=== PATIENT | male | born 1955 | race African-American/Black ===

== ENCOUNTER 2017-04-23 09:25 | Day surgery (SDC) | payer OTHER ==
[2017-04-22 13:24] VITALS: BMI 23.5
--- NOTE | 2017-04-23 11:12 | HP ---
Admitting History and Physical - Admission History of Present Illness: The patient is a 61 yo male who presents today for repair of a left inguinal hernia. He has noted the hernia for 18 months and states that it moves in and out. Today he has no complaints of nausea, abd pain. No CP, SOB fevers. 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, Seizure Cardiovascular: No: Deep Vein Thrombosis, HTN Pulmonary: No: Asthma, Sleep Apnea Gastrointestinal: No: Gastritis, GERD Renal/: No: Renal Failure, Hematuria Musculoskeletal: Yes: Osteoarthritis, Other (bilateral shoulder injury with chronic pain) Endocrine: No: Diabetes Mellitus (r) - Past Surgical History Additional Past Surgical History: right biceps repair Left elbow fracture repair with hardware - Smoking History Smoking history: Current some day smoker Have you smoked in the past 12 months: Yes Aproximately how many cigarettes per day: 3 - Alcohol/Substance Use Hx Alcohol Use: Yes (RARELY) <Joanie Hart - Last Filed: 04/23/17 11:30> Home Medications <Joanie Hart - Last Filed: 04/23/17 11:30> <Bill Cedillo - Last Filed: 04/23/17 11:55> - Allergies Allergies/Adverse Reactions: Allergies Allergy/AdvReac Type Severity Reaction Status Date / Time No Known Drug Allergies Allergy Verified 04/23/17 10:01 - Home Medications Home Medications: Ambulatory Orders RX: No Home Medications 0 dose .ROUTE UTDICT 11/11/13 Docusate Sodium [Colace -] 100 mg PO TID #90 capsule 04/23/17 Oxycodone HCl/Acetaminophen [Percocet 5-325 mg Tablet] 1 - 2 tab PO Q4H #28 tablet MDD 4 04/23/17 Review of Systems - Review of Systems Constitutional: denies: Chills, Fever Neck: denies: Decreased ROM, Pain on Movement Cardiovascular: denies: Chest Pain, Palpitations Respiratory: denies: Cough, Snoring, SOB Gastrointestinal: denies: Abdominal Pain, Nausea Genitourinary: denies: Burning, Hematuria Musculoskeletal: reports: Decreased ROM (bilateral shoulders), Joint Pain ( bilateral shoulders). denies: Joint Swelling Neurological: denies: Headache, Seizure Endocrine: reports: Unexplained Weight Loss Hematology/Lymphatic: denies: Easily Bruised, Excessive Bleeding <Metzen,Joanie - Last Filed: 04/23/17 11:30> Physical Examination Vital Signs: Vital Signs Temperature 97.5 F L 04/23/17 09:57 Pulse Rate 78 04/23/17 09:57 Respiratory Rate 18 04/23/17 09:57 Blood Pressure 111/84 04/23/17 09:57 O2 Sat by Pulse Oximetry (%) 98 04/23/17 09:57 Constitutional: Yes: Well Nourished, Calm Eyes: Yes: WNL, Conjunctiva Clear. No: Sclera Icterus HENT: Yes: WNL, Atraumatic, Normocephalic Neck: Yes: WNL, Supple, Trachea Midline Cardiovascular: Yes: WNL, Regular Rate and Rhythm Respiratory: Yes: WNL, Regular, CTA Bilaterally Gastrointestinal: Yes: WNL, Normal Bowel Sounds, Soft, Hernia (reducible, non- tender to left inguinal area) Edema: No Peripheral Pulses WNL: Yes Peripheral Pulses: Left Doralis Pedis: 2+, Right Dorsalis Pedis: 2+ Wound/Incision: Yes: Clean/Dry, Well Approximated Neurological: Yes: WNL, Alert, Oriented ...Motor Strength: WNL, LUE, LLE, RUE, RLE Psychiatric: Yes: WNL, Alert, Oriented <Joanie Hart Last Filed: 04/23/17 11:30> Vital Signs: Vital Signs Temperature 97.5 F L 04/23/17 09:57 Pulse Rate 78 04/23/17 09:57 Respiratory Rate 18 04/23/17 09:57 Blood Pressure 111/84 04/23/17 09:57 O2 Sat by Pulse Oximetry (%) 98 04/23/17 09:57 <Bill Cedillo - Last Filed: 04/23/17 11:55> Assessment/Plan 61 yo male with left inguinal hernia for robotic repair today he remains npo <Joanie Hart - Last Filed: 04/23/17 11:30> Agree Left inguinal hernia Robotic possible open repair with mesh Understands risks and agrees <Bill Cedillo - Last Filed: 04/23/17 11:55>
[2017-04-23] MEDS ORDERED: BUPIVACAINE HCL/PF 0.5% (5MG/ML) 10 ML VIAL ONE (11:24)
[2017-04-23] MEDS ORDERED: ONDANSETRON 4 MG/2 ML VIAL IVPUSH PRN (11:40)
[2017-04-23] MEDS ORDERED: PROMETHAZINE HCL 25 MG/1 ML VIAL IVPUSH PRN (11:40)
[2017-04-23] MEDS ORDERED: oxyCODONE HCL 5 MG TABLET PO PRN (11:40)
[2017-04-23] MEDS ORDERED: MIDAZOLAM HCL 2 MG/2 ML SINGLE DOSE VIAL ONE ×2 (11:44)
[2017-04-23] MEDS ORDERED: ROCURONIUM BROMIDE 50 MG/5 ML VIAL ONE ×2 (11:55→12:33)
[2017-04-23] MEDS ORDERED: PROPOFOL 20 ML ONE (11:56)
[2017-04-23] MEDS ORDERED: ceFAZolin SODIUM 1 GM VIAL IVPB ONE (11:58)
[2017-04-23] MEDS ORDERED: LACTATED RINGERS SOLUTION 1,000 ML IV SCH (12:15)
[2017-04-23] MEDS ORDERED: BUPIVACAINE HCL/PF 0.5% (5MG/ML) 10 ML VIAL IJ ONE ×2 (12:36→13:54)
[2017-04-23] MEDS ORDERED: DEXAMETHASONE SOD PHOSPHATE 4 MG/1 ML VIAL ONE (13:44)
[2017-04-23] MEDS ORDERED: NEOSTIGMINE METHYLSULFATE 0.5 MG/ML - 10 ML MDV ONE (13:45)
[2017-04-23] MEDS ORDERED: GLYCOPYRROLATE 0.2 MG/1 ML VIAL ONE (13:45)
[2017-04-23] MEDS ORDERED: ACETAMINOPHEN 325 MG TABLET (FP) PO PRN (14:02)
[2017-04-23] MEDS ORDERED: ONDANSETRON 4 MG/2 ML VIAL IVPB PRN (14:02)
[2017-04-23] MEDS ORDERED: HYDROmorphone HCL CARPU-JECT 1 MG/1 ML DISP.SYRIN IVPB PRN (14:02)
--- NOTE | 2017-04-23 14:02 | OP ---
Operative Note - Note: Operative Date: 04/23/17 Pre-Operative Diagnosis: Recurrent left inguinal hernia Operation: Robotic recurrent left inguinal hernia repair with mesh Post-Operative Diagnosis: Same as Pre-op Surgeon: Bill Cedillo Talent Assistant: Joanie Hart Anesthesia: General Estimated Blood Loss (mls): 5 Operative Report Dictated: Yes
[2017-04-23] MEDS ORDERED: D5-1/2NS+20 MEQ KCL - 1,000 ML IV SCH (14:15)
--- NOTE | 2017-04-23 14:15 | SURG ---
Surgery Stationary Engineer Supervisor Note Stationary Engineer Supervisor: Joanie Hart PA-C Date of Service: 04/23/17 Diagnosis: Recurrent left inguinal hernia Procedure: Robotic recurrent left inguinal hernia repair with mesh I was present for the entirety of the operative procedure. For further detail, please refer to operative report. Visit type - Case Type Case Type: Scheduled Admission - Emergency Emergency Visit: No - New patient This patient is new to me today: Yes Date on this admission: 04/23/17 - Critical Care Critical Care patient: No
[2017-04-23 16:23] VITALS: TEMP 98
[2017-04-23 20:01] VITALS: BP 129/83; PULSE 70
--- NOTE | 2017-04-26 11:24 | SPEC ---
DATE OF OPERATION: 04/23/2017 SURGEON: Bill Cedillo MD SENIOR MECHANICAL DEVELOPMENT ENGINEER: DARRICK Jensen PREOPERATIVE DIAGNOSIS: Recurrent left inguinal hernia. POSTOPERATIVE DIAGNOSIS: Recurrent left inguinal hernia. PROCEDURE: Robotic repair of recurrent left inguinal hernia with mesh. SPECIMEN: None. ESTIMATED BLOOD LOSS: 5 mL. DRAINS: None. ANESTHESIA: GET. REASON FOR PROCEDURE: This is a 61-year-old gentleman who presented to the office for complaints of left groin pain and bulging. He was found to have a left inguinal hernia in this region. Of note, he had had a prior repair of both his right and left inguinal regions for prior hernias. Again, a recurrent left inguinal hernia was noted. Because of this, he was consented for a robotic, possible open left inguinal hernia repair with mesh after discussing the different options. RISKS AND BENEFITS: The risks and benefits of a Robotic, possible open left inguinal hernia repair, possible bilateral inguinal hernia repair with mesh were explained. These included bleeding, infection, recurrence of hernia, IA, DVT, PE, new hernia, mesh infection, injury to surrounding structures, including the colon, bowel, bladder, ureter, spermatic cord, spermatic vessels, vas deferens, vessel injury, nerve injury, testicular injury, including testicular atrophy and possible testicular loss, and as some of the possible complications. The patient understood and signed informed consent. DESCRIPTION OF PROCEDURE: The patient was placed supine on the operating table. The patient underwent general endotracheal intubation. A Negro catheter was inserted. The arms were tucked at the side and he was placed on a beanbag device. The abdomen was prepped and draped in the usual sterile fashion. A time-out was performed. A periumbilical incision was made and entrance into the abdominal cavity was obtained using an 8-mm robotic optical trocar under direct visualization with the laparoscope. Pneumoperitoneum was established. Subsequently, 2 additional 8-mm trocars were placed, one approximately 6 to 7 cm to the left of the umbilicus and one 6 to 7 cm to the right of the umbilicus. The patient was placed in steep Trendelenburg [id number] position. The robot was brought over the field and docked. Dissection was performed at the console. The peritoneum was opened using robotic Endo Sarwat. The preperitoneal space over the left inguinal region was dissected. The epigastric vessels were identified and dissected toward the anterior abdominal wall. Dissection in the preperitoneal space was continued from the medial umbilical ligament towards the anterior-superior iliac spine. Medially, dissection was performed until Fredrick's ligament and the pubis were identified. Lateral to this, the spermatic cord structures, including the vas deferens, were identified. The contents of the hernia sac were identified and dissected down to the retroperitoneum. At this point, hemostasis was identified. Again, all of the hernia content was noted to be completely dissected and noted to have no retraction back to its original position. A Symbotex mesh was then chosen, irrigated and inserted into the abdominal cavity to cover the entire myopectineal orifice. The mesh was secured medially at the pubis and superolaterally to the abdominal wall with sutures. The mesh was noted to be in good position. The hernia was again noted to be fully reduced and without any tension. At this point, the peritoneal flap was closed using a 2-0 V-Loc suture. Again, hemostasis was identified. All needles were removed from the field and the count was confirmed to be correct. The robotic instruments were removed. The robot was undocked and removed from the operative field. The patient was placed supine. Pneumoperitoneum was desufflated. All trocars were removed. All incision sites were irrigated and Marcaine was injected in all incision sites. Hemostasis was noted at all incision sites. All incision sites were closed using 4-0 Biosyn. Sterile dressings were applied. The Negro catheter was removed. The patient tolerated the procedure well and was transferred to the recovery room in stable condition. Michele WELDON/[id number]
== END 2017-04-23 19:30 | disposition home or self-care (01) ==
LOC: JASU-SURG 09:25
PROVIDERS: ATTEND Surgery
PROC: 0YU64JZ Supplement Left Inguinal Region with Synthetic Substitute, Percutaneous Endoscopic Approach (ICD-10-PCS; principal; 2017-04-23 11:00)
DX: K40.90 Unilateral inguinal hernia, without obstruction or gangrene, not specified as recurrent (principal)
CPT/HCPCS: 49650; S2900; 94760

== ENCOUNTER 2023-12-15 07:33 | Emergency (ER) | payer OTHER ==
[2023-12-15 07:41] VITALS: BP 154/92; PULSE 92; RESP 18; TEMP 97.5; BMI 23.7
[2023-12-15 09:06] LABS: BASO % 0.8 % (0-2.0); EOS % 1.3 % (0-4.5); HEMATOCRIT 50.5 % (35.4-49); HEMOGLOBIN 16.3 GM/dL (11.7-16.9); LYMPH % 15.6 % (8-40); MCH 28.5 pg (25.7-33.7); MCHC 32.3 g/dl (32.0-35.9); MEAN PLT VOLUME 8.3 fl (7.5-11.1); MONO % 11.7 % (3.8-10.2); NEUT % 70.6 % (42.8-82.8); PLATELET COUNT 202 10^3/uL (134-434); RBC 5.74 M/mm3 (4.00-5.60); RDW 13.3 % (11.9-15.9); WHITE BLOOD COUNT 5.6 K/mm3 (4.0-10.0)
[2023-12-15 09:19] LABS: POTASSIUM 4.8 mmol/L (3.5-5.1)
[2023-12-15 09:21] LABS: ALBUMIN 3.7 g/dl (3.4-5.0); BLOOD UREA NITROGEN 11.2 mg/dL (7-18); CALCIUM 9.6 mg/dL (8.5-10.1)
[2023-12-15 10:26] LABS: PH,URINE 5.5 (5.0-8.0); URINE APPEARANCE CLEAR; URINE BILIRUBIN NEGATIVE (NEGATIVE); URINE COLOR YELLOW; URINE GLUCOSE (UA) NEGATIVE (NEGATIVE); URINE KETONE 1+ (NEGATIVE); URINE LEUK ESTERASE NEGATIVE (NEGATIVE); URINE NITRITE NEGATIVE (NEGATIVE); URINE PROTEIN NEGATIVE (NEGATIVE); URINE UROBILINOGEN 0.2 mg/dL (0.2-1.0)
== END 2023-12-15 13:09 | disposition home or self-care (01) ==
LOC: JER 07:33
DX: K59.00 Constipation, unspecified (principal); R10.32 Left lower quadrant pain
CPT/HCPCS: 36415; 74177-TC; 80053; 81003; 83690; 85025; 87086; 93005; 93010; 99285-25; Q9967